=== PATIENT | male | born 1950 | race Hispanic/Latino ===

== ENCOUNTER → 2024-10-25 | Outpatient (CLI) | payer OTHER ==
[2024-10-25 22:26] VITALS: PULSE 74; RESP 12
[2024-10-25 23:15] VITALS: PULSE 75; RESP 12
[2024-10-25 23:30] VITALS: PULSE 72; RESP 14
[2024-10-26] VITALS (11 sets, daily range): PULSE 62–81; RESP 12–14
== END | disposition home or self-care (01) ==
LOC: SLP 20:56
PROVIDERS: ATTEND Nurse Practitioner Family
DX: G47.33 Obstructive sleep apnea (adult) (pediatric) (principal)
CPT/HCPCS: 95810